=== PATIENT | female | born 1995 ===

== ENCOUNTER 2019-01-24 11:01 | Inpatient (IN) | payer OTHER ==
[~2019-01-24] VITALS: Ht 167.6 cm; Wt 81.2 kg
[2019-01-24] MEDS ORDERED: IRON325 MG PO (11:34)
[2019-01-24] MEDS ORDERED: ZANTAC300 MG PO (11:34)
[2019-01-24] MEDS ORDERED: PRENATAL TABLE1 EAC1 PO (11:34)
[2019-01-27] MEDS ORDERED: INTEGRA PLUS C1 EACH PO (06:58)
== END 2019-01-27 10:24 | disposition home or self-care (01) | DRG 805 ==
LOC: LDR 11:01 → OB/GYN 11:01 → O/R 14:16 → OB/GYN 14:31
PROVIDERS: ADMIT Obstetrics & Gynecology
PROC: 0KQM0ZZ Repair Perineum Muscle, Open Approach (ICD-10-PCS; 2019-01-24)
PROC: 0UQGXZZ Repair Vagina, External Approach (ICD-10-PCS; 2019-01-24)
PROC: 4A1HXCZ Monitoring of Products of Conception, Cardiac Rate, External Approach (ICD-10-PCS; 2019-01-24)
PROC: 10E0XZZ Delivery of Products of Conception, External Approach (ICD-10-PCS; principal; 2019-01-24 13:00)
DX: O70.1 Second degree perineal laceration during delivery (principal); O60.14X0 Preterm labor third trimester with preterm delivery third trimester, not applicable or unspecified; Z37.0 Single live birth; O72.2 Delayed and secondary postpartum hemorrhage; D62 Acute posthemorrhagic anemia; O71.82 Other specified trauma to perineum and vulva; Z3A.36 36 weeks gestation of pregnancy; O90.81 Anemia of the puerperium